=== PATIENT | male | born 1990 | race Caucasian/White ===

== ENCOUNTER 2017-05-27 21:22 | Emergency (ER) | payer BC ==
[~2017-05-27] VITALS: Wt 65.9 kg
[~2017-05-27 21:22] MED LIST: PREDNISONE20 MG PO
[2017-05-27 21:45] VITALS: BP 110/74; PULSE 97; TEMP 98.5
[2017-05-27] MEDS ORDERED: NORCO 325 MG-51 TAB PO (22:35)
== END 2017-05-27 23:13 | disposition home or self-care (01) ==
LOC: COL.ER 21:22
DX: S62.141A Displaced fracture of body of hamate [unciform] bone, right wrist, initial encounter for closed fracture (principal); S62.314A Displaced fracture of base of fourth metacarpal bone, right hand, initial encounter for closed fracture; S62.316A Displaced fracture of base of fifth metacarpal bone, right hand, initial encounter for closed fracture; F12.90 Cannabis use, unspecified, uncomplicated; Z87.891 Personal history of nicotine dependence; W22.01XA Walked into wall, initial encounter
CPT/HCPCS: Q4021